=== PATIENT | female | born 1960 | race Caucasian/White ===

== ENCOUNTER 2023-02-11 06:26 | Inpatient (IN) | payer BC, OTHER ==
[2023-02-11] VITALS (17 sets, daily range): BP systolic 108–158; BP diastolic 53–95
[~2023-02-11] VITALS: Ht 157.5 cm; Wt 93.3 kg
[~2023-02-11 06:26] MED LIST: CETI5 PO; DHEA MICRONIZED10 MG; EUTHYROX88 MCG PO; HYDACE5 PO; MULVITA PO; Percocet 5-3251 EACH PO
--- NOTE | 2023-02-11 07:36 | NUR ---
Ambulatory in Day SurgeryPre-Op teaching done. Pt verbalizes understanding. History, Chart, Medications and Allergies reviewed before start of procedure.Patient confirms NPO status and agrees with scheduled surgery. Lungs clear T/O to Auscultation. ALERT, ORIENTED, QUIET/ANXIOUS, AT BS. SKIN WARM, PINK, DRY, LUNGS CTAB
--- NOTE | 2023-02-11 13:00 | NUR ---
PATIENT CAME BACK FROM PACU TODAY AT 1300. POD 0 LAP ANTERIOR RESECTION PATIENT IS DROWSY BUT IS RESPONDING TO VERBAL STIMULI. SHE IS A&OX4 AND ANSWERS QUESTIONS APPROPRIATELY. PATIENT IS CURRENTLY ON 3L NC WITH >90% OXYGEN SATS BUT OTHERWISE VS ARE WNL. PATIENT DENIES PAIN AT THIS TIME. SHE HAS 4 LAP SITES WITH WOUND GLUE THAT ARE C/D/I. DENIES NAUSEA OR VOMITING. PATIENT HAS A HIGGINS IN PLACE THAT IS TO BE D/C'D POD 1 BUT IS DRAINING PER GRAVITY WITH YELLOW OUTPUT. PATIENT IS LAYING IN BED WITH CALL LIGHT IN REACH AND AT BEDSIDE.
--- NOTE | 2023-02-11 15:32 | NUR ---
SHIFT SUMMARY: POD 0 LAP ANTERIOR RESECTION NO SIGNIFICANT CHANGES SINCE POST OP. PATIENT IS MORE AWAKE BUT IS INTERMITTENTLY NAPPING. SHE IS A&OX4. VS ARE WNL AND IS RESTING COMFORTABLY. ABD HAS X4 LAP SITES WITH WOUND GLUE THAT ARE C/D/I. DENIES NAUSEA AND VOMITING THOUGHOUT SHIFT. SHE IS TOLERATING SMALL AMOUNTS OF PO INTAKE. HIGGINS IS DRAINING PER GRAVITY AND HAS YELLOW OUTPUT. HIGGINS IS TO BE D/C'D TOMORROW. PATIENT IS LAYING IN BED WITH CALL LIGHT IN REACH. AT BEDSIDE.
[2023-02-12 03:15] VITALS: BP 138/64
--- NOTE | 2023-02-12 04:06 | NUR ---
SHIFT SUMMARY POD1 LAP ANT BOWEL RESECTION. X4 LAP SITES C/D/I, SOME BRUISING NOTED AROUND INCISIONS. OTHERWISE UNREMARKABLE. VSS. PT NOTED TO BE SLIGHTLY BRADYCARDIC THIS AM, REMAINS ASYMPTOMATIC. IV FLUIDS INFUSING FOR HYDRATION SUPPORT. PT SLEPT ON AND OFF T/O THE NIGHT. PT AMBULATING INDEPENDENTLY. HAS TAKEN MULTIPLE WALKS T/O THE NIGHT. PASSING FLATTUS AND STOOL. HIGGINS REMOVED AT 3 AM AFTER INCONTINENT BM. AWAITING FIRST VOID. PT MEDICATED FOR PAIN WITH SCHEDULED TYLENOL. PT TOLLERATING PO INTAKE W/O N/V. NO ACUTE EVENTS T/O THE NIGHT. PLAN TO HAVE SURGEON EVALUATE PT THIS AM. NO IGNITION SOURCE IDENTIFIED.
[2023-02-12 05:15] LABS: Hematocrit 38.9 % (33.0-51.0); Hemoglobin 12.8 g/dL (11.5-16.0); Mean Corpuscular HGB 28.3 pg (26.0-34.0); Mean Corpuscular HGB Conc 32.9 g/dL (31.5-36.5); Mean Corpuscular Volume 86 fL (80-100); Platelet Count 272 K/mm3 (150-400); RDW Coefficient Variation 13.3 % (11.7-14.2); RDW Standard Deviation 41.5 fL (35.1-46.3); Red Blood Cell Count 4.53 M/mm3 (3.80-5.20); White Blood Cell Count 10.37 K/mm3 (4.00-11.30)
[2023-02-12 06:08] LABS: Bun/Creatinine Ratio 17.7 (12.0-20.0); Calcium, Blood 8.7 mg/dL (8.5-10.1); Creatinine, Blood 0.79 mg/dL (0.40-1.00); Potassium, Blood 3.9 mmol/L (3.5-5.5)
[2023-02-12 07:28] VITALS: BP 129/59
[2023-02-12] MEDS ORDERED: ACET325 PO (12:41)
--- NOTE | 2023-02-12 12:57 | NUR ---
DISCHARGE SUMMARY PATIENT IS ALERT AND ORIENTED. PATIENT HAS HAD NO ACUTE EVENTS THIS SHIFT. VITAL SIGNS REVIEWED. PATIENT IS BEING DISCHARGED HOME WITH FRIEND TRANSPORTING. PATIENTS INCISION IS CDI. PATIENT WAS READ DISCHARGE INSTRUCTIONS WITH [employer]. PATIENTS MEDICATIONS W[facility]. PATIENT HAD COMPLAINED OF MILD PAIN 2/10. MEDICATED PER EMAR. PATIENT HAS NOT COMPLAINED OF SOB, NAUSEA OR VOMITTING THIS SHIFT.
== END 2023-02-12 13:04 | disposition home or self-care (01) | DRG 330 ==
LOC: SURS 06:26 → PRE IP 07:30 → SURS 12:53
PROVIDERS: ADMIT Surgery
PROC: 8E0WXCZ Robotic Assisted Procedure of Trunk Region (ICD-10-PCS; 2023-02-11)
PROC: 0DTE0ZZ Resection of Large Intestine, Open Approach (ICD-10-PCS; 2023-02-11)
PROC: 0DTP4ZZ Resection of Rectum, Percutaneous Endoscopic Approach (ICD-10-PCS; principal; 2023-02-11 07:30)
DX: C19 Malignant neoplasm of rectosigmoid junction (principal); Q23.1 Congenital insufficiency of aortic valve; E03.9 Hypothyroidism, unspecified; E66.9 Obesity, unspecified; Z88.5 Allergy status to narcotic agent; Z79.890 Hormone replacement therapy; Z79.899 Other long term (current) drug therapy; Z87.81 Personal history of (healed) traumatic fracture; Z98.890 Other specified postprocedural states; Z68.38 Body mass index [BMI] 38.0-38.9, adult
CPT/HCPCS: 36415; 80048; 83735; 85027; A9270; J0690; J1100; J1644; J1650; J2371; J2405; J2704; J3010; J7120